=== PATIENT | male | born 2000 | race Caucasian/White ===

== ENCOUNTER 2021-12-03 02:29 | Emergency (ER) | payer OTHER ==
[2021-12-03 03:02] LABS: BILIRUBIN,URINE NEGATIVE (NEGATIVE); GLUCOSE, URINE (UA) NEGATIVE (NEGATIVE); KETONES,URINE (UA) NEGATIVE (NEGATIVE); LEUKOCYTE ESTERASE, URINE MODERATE (NEGATIVE); NITRITE,URINE NEGATIVE (NEGATIVE); OCCULT BLOOD,URINE TRACE-INTA (NEGATIVE); PH,URINE 6.5 PH (5.0-7.5); PROTEIN,URINE NEGATIVE (NEGATIVE); UROBILINOGEN,URINE 0.2 (NORMAL) E.U./dL (NORMAL)
[2021-12-03 03:15] LABS: BACTERIA,URINE Few /HPF (None Seen); CLARITY,URINE CLEAR (CLEAR); RBC,URINE 0-5 /HPF (0-5); SQUAMOUS EPITHELIAL CELL,UR RARE Squamous (<= Few); WBC,URINE >25 /HPF (0-3)
[2021-12-03] MEDS ORDERED: cefTRIAXone 500 MG VIAL IM STA (03:29)
[2021-12-03] MEDS ORDERED: LIDOCAINE 1% 2 ML VIAL MC ONE (03:29)
[2021-12-03] MEDS ORDERED: DOXYCYCLINE 100 MG TABLET PO STA (03:30)
[2021-12-03 03:53] VITALS: BP 139/68
[2021-12-03 12:47] LABS: CHLAMYDIA TRACHOMATIS DNA NEGATIVE (NEGATIVE)
[2021-12-03 13:37] LABS: NEISSERIA GONORRHOEAE DNA POSITIVE (NEGATIVE)
--- NOTE | 2021-12-03 20:40 | ED Physician Documentation ---
PD HPI MALE - Stated complaint Stated Complaint: MALE - Chief complaint Chief Complaint: UTI - History obtained from History obtained from: Patient - History of Present Illness Timing - onset: How many days ago (2-3) Associated symptoms: Dysuria, Discharge PD HPI MALE CONTRIB FACTORS: Sexually active, Exposed to STD (chlamydia) Similar symptoms before: Has not had sx before Review of Systems Constitutional: denies: Fever GI: denies: Abdominal Pain : reports: Dysuria, Discharge Skin: denies: Rash, Lesions PD PAST MEDICAL HISTORY - Past Medical History Past Medical History: No - Past Surgical History Past Surgical History: No - Present Medications Home Medications: Ambulatory Orders Medication Instructions Recorded Confirmed Doxycycline [Vibramycin] 100 mg PO BID #13 tablet 12/03/21 - Allergies Allergies/Adverse Reactions: Allergies Allergy/AdvReac Type Severity Reaction Status Date / Time Sulfa (Sulfonamide Allergy Unknown Verified 12/03/21 02:35 Antibiotics) - Social History Does the pt smoke?: No Smoking Status: Never smoker Does the pt drink ETOH?: Yes Does the pt have substance abuse?: No - Immunizations Immunizations are current?: Yes PD ED PE NORMAL - Vitals Vital signs reviewed: Yes - General General: Alert and oriented X 3, No acute distress, Well developed/nourished - Abdomen Abdomen: Soft, Non tender - Back Back: No CVA TTP Results - Vitals Vitals: Oxygen O2 Source Room air - Labs Labs: Microbiology 12/03/21 02:40 Urine Culture - Final Urine,Clean Catch No growth Laboratory Tests 12/03/21 12/03/21 02:40 02:40 Urine Color YELLOW Urine Clarity CLEAR Urine pH 6.5 Ur Specific [place] 1.020 Urine Protein NEGATIVE Urine Glucose (UA) NEGATIVE Urine Ketones NEGATIVE Urine Occult Blood TRACE-INTA Urine Nitrite NEGATIVE Urine Bilirubin NEGATIVE Urine Urobilinogen 0.2 (NORMAL) Ur Leukocyte Esterase MODERATE H Urine RBC 0-5 Urine WBC >25 H Ur Squamous Epith Cells RARE Squamous Urine Bacteria Few Ur Microscopic Review INDICATED Urine Culture Comments INDICATED Chlam trachomat DNA PCR NEGATIVE N.gonorrhoeae DNA (PCR) POSITIVE A T. vaginalis (PCR) TNP PD MEDICAL DECISION MAKING - ED course Complexity details: considered differential, d/w patient ED course: patient has dysuria with penile discharge, was recently exposed to more than one partner who was recently told they have chlamdyia. urine sample sent for STD testing, empirically treated with 500mg IM rocephin and doxycycline with rx for 7 days doxycycline Departure - Departure Disposition: 01 Home, Self Care Clinical Impression: Urethritis Condition: Good Instructions: ED STD Male Treated Follow-Up: ELLEN Horta [Provider Group] (4-5 days if not improving) Prescriptions: Doxycycline [Vibramycin] 100 mg PO BID #13 tablet Comments: The results of the STD tests (chlamydia and gonorrhea) are pending. Based on the description of your symptoms, you have been given antibiotics as empiric treatment (will presume you have one or both), which is a standard approach in this scenario. You were given a one-time dose of ceftriaxone (the injection you received in the ER). You were given a dose of doxycycline (oral medication) and a prescription for a one-week course has been electronically submitted to [facility] pharmacy in [place] Discharge Date/Time: 12/03/21 03:52
== END 2021-12-03 03:52 | disposition home or self-care (01) ==
LOC: ED 02:29
DX: N34.2 Other urethritis (principal)
CPT/HCPCS: 81001; 87086; 87491; 87591; 96372; 99282; 99283; A9270; 81003; 87661

== ENCOUNTER 2022-07-24 12:35 | Outpatient (CLI) | payer OTHER ==
--- NOTE | 2022-07-24 13:03 | Sleep Patient Instructions ---
Sleep Center Visit Summary - Patient Visit Information Reason for Visit: Initial consult for evaluation of sleep disordered breathing and other sleep issues. - Patient Instructions Instructions Attached: Sleep Study, Sleep Clinic Visit, Sleep Study Home Monitor Additional Instructions: You will be completing a sleep study, either an in-lab polysomnography (PSG) or home sleep study (HST). You will follow-up in the sleep care office after the sleep study is completed to hear the results and talk about therapy, if needed. You will be called by our office staff to schedule this appointment, but you may contact us with any questions. - Clinic Information Contact: [facility] [address] [place] [address] [email or web address] T: [phone]
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
[2022-07-24 13:28] VITALS: BP 120/62
== END 2022-07-24 12:36 | disposition home or self-care (01) ==
LOC: SC 12:35
PROVIDERS: ATTEND Nurse Practitioner Family
DX: R06.83 Snoring (principal); G47.8 Other sleep disorders; G47.00 Insomnia, unspecified; R53.83 Other fatigue; F32.A Depression, unspecified; E66.3 Overweight; Z68.26 Body mass index [BMI] 26.0-26.9, adult; Z87.891 Personal history of nicotine dependence
CPT/HCPCS: 99203; 99212

== ENCOUNTER 2022-09-06 10:56 | Outpatient (CLI) | payer OTHER | END 2022-09-06 10:57 | disposition home or self-care (01) | LOC: SC 10:56 | PROVIDERS: ATTEND Nurse Practitioner Family | DX: R06.83 Snoring (principal) | CPT/HCPCS: 95806 ==

== ENCOUNTER 2022-09-11 16:02 | Outpatient (CLI) | payer OTHER | END 2022-09-11 16:03 | disposition home or self-care (01) | LOC: SC 16:02 | PROVIDERS: ATTEND Nurse Practitioner Family | DX: R06.83 Snoring (principal) | CPT/HCPCS: 95806 ==

== ENCOUNTER 2022-10-02 20:22 | Outpatient (CLI) | payer OTHER | END 2022-10-02 20:23 | disposition home or self-care (01) | LOC: SC 20:22 | PROVIDERS: ATTEND Nurse Practitioner Family | DX: G47.33 Obstructive sleep apnea (adult) (pediatric) (principal) | CPT/HCPCS: 95810 ==